=== PATIENT | male | born 1970 | race Caucasian/White ===

== ENCOUNTER 2018-10-03 15:49 | Emergency (ER) | payer OTHER ==
[~2018-10-03] VITALS: Ht 170.2 cm; Wt 88.5 kg
== END 2018-10-03 16:57 | disposition home or self-care (01) ==
LOC: ER 15:49 → EDSEX 16:02 → ER 16:02
DX: S61.022A Laceration with foreign body of left thumb without damage to nail, initial encounter (principal); W45.8XXA Other foreign body or object entering through skin, initial encounter; Y93.89 Activity, other specified; Y92.69 Other specified industrial and construction area as the place of occurrence of the external cause; Y99.8 Other external cause status

== ENCOUNTER 2018-10-12 16:08 | Emergency (ER) | payer OTHER ==
[~2018-10-12] VITALS: Ht 170.2 cm; Wt 88.5 kg
== END 2018-10-12 18:43 | disposition home or self-care (01) ==
LOC: ER 16:08
DX: Z48.02 Encounter for removal of sutures (principal)